=== PATIENT | female | born 1985 | race Caucasian/White ===

== ENCOUNTER → 2017-11-06 14:11 | Outpatient (CLI) | payer BC, SELFPAY ==
--- NOTE | 2017-11-06 14:15 | XR_ITS ---
XR knee RT 3V HISTORY: ITS.REASON: RT KNEE INJURY, PAIN ORDERING PHYSICIAN: Elmer Herzog PATIENT AGE: 32 years COMPARISON: None FINDINGS: No fracture or dislocation. No lytic or blastic change. Normal mineralization. No significant arthritic changes evident. No other significant findings IMPRESSION: Negative Knee
== END ==
PROVIDERS: PCP Internal Medicine; Visit Provider Internal Medicine
DX: M25.561 Pain in right knee (principal)
CPT/HCPCS: 73562

== ENCOUNTER → 2020-08-20 15:51 | Outpatient (CLI) | payer OTHER, SELFPAY ==
--- NOTE | 2020-08-20 15:55 | XR_ITS ---
PROCEDURE: XR CHEST 2V CLINICAL HISTORY: THORACIC CHEST PAIN (POSTERIOR) COMPARISON: CR CXR CHEST(2 VIEWS-NOT PORTABLE) from 05/06/2013 CR CXR CHEST(2 VIEWS-NOT PORTABLE) from 11/15/2013 CR CXR CHEST(2 VIEWS-NOT PORTABLE) from 07/04/2014 FINDINGS: The cardiomediastinal silhouette and pulmonary vascularity are within normal limits. The lungs are clear without infiltrates, suspicious nodules, or pleural effusions. No acute bony abnormalities. IMPRESSION: No acute findings. Dictated by: Seymour Tavarez MD 08/20/2020 16:40 Seymour Tavarez MD in [place] 08/20/2020 16:40
== END ==
PROVIDERS: PCP Internal Medicine; Visit Provider Internal Medicine
DX: M54.6 Pain in thoracic spine (principal)
CPT/HCPCS: 71046

== ENCOUNTER → 2020-08-25 09:13 | Outpatient (CLI) | payer OTHER, SELFPAY ==
[2020-08-26 12:29] LABS: Covid-19 Nasal PCR Sendout Lex Not Detected
== END ==
PROVIDERS: PCP Internal Medicine; Visit Provider Internal Medicine
DX: Z03.818 Encounter for observation for suspected exposure to other biological agents ruled out (principal)
CPT/HCPCS: U0004

== ENCOUNTER → 2021-03-18 14:33 | Outpatient (CLI) | payer OTHER, SELFPAY ==
--- NOTE | 2021-03-18 14:35 | XR_ITS ---
PROCEDURE: XR FOOT WT BEARING RT 3V CLINICAL INDICATION: right foot pain COMPARISON: CR FTL3 FOOT-LT-3 VIEWS from 11/19/2012 CR FTL3 FOOT-LT-3 VIEWS from 11/23/2012 FINDINGS: No fracture or dislocation. No lytic or blastic change. There is normal mineralization. The joint spaces are well-preserved. No significant degenerative/arthritic changes. No erosive changes evident. Other findings:None. IMPRESSION: No acute findings. Dictated by: Seymour Tavarez MD 03/18/2021 15:05 Seymour Tavarez MD in [place] 03/18/2021 15:05
== END ==
PROVIDERS: PCP Internal Medicine; Visit Provider Podiatrist
DX: M79.671 Pain in right foot (principal)
CPT/HCPCS: 73630

== ENCOUNTER → 2021-06-28 10:10 | Outpatient (CLI) | payer OTHER, SELFPAY ==
[2021-06-28 10:44] LABS: Coronavirus 19, PCR Not Detected (NotDetected); Influenza A, PCR Not Detected (NotDetected); Influenza B, PCR Not Detected (NotDetected)
[2021-06-28 11:27] LABS: Strep Scrn Group A (Rapid) Negative (Negative)
== END ==
PROVIDERS: PCP Internal Medicine; Visit Provider Internal Medicine
DX: Z20.822 Contact with and (suspected) exposure to COVID-19 (principal)
CPT/HCPCS: 87430; C9803; U0003; U0005

== ENCOUNTER → 2021-12-16 10:20 | Outpatient (CLI) | payer OTHER, SELFPAY ==
[2021-12-16 10:44] LABS: Coronavirus 19, PCR Not Detected (NotDetected); Influenza A, PCR Not Detected (NotDetected); Influenza B, PCR Not Detected (NotDetected)
[2021-12-16 11:05] LABS: Strep Scrn Group A (Rapid) Negative (Negative)
== END ==
PROVIDERS: PCP Internal Medicine; Visit Provider Internal Medicine
DX: Z20.822 Contact with and (suspected) exposure to COVID-19 (principal); J02.9 Acute pharyngitis, unspecified
CPT/HCPCS: 87275; 87276; 87430; C9803; U0003; U0005

== ENCOUNTER → 2022-01-27 09:05 | Outpatient (CLI) | payer OTHER, SELFPAY ==
--- NOTE | 2022-01-27 09:09 | XR_ITS ---
FINAL REPORT CLINICAL HISTORY: knee pain COMPARISON: November 06, 2017 FINDINGS: RIGHT KNEE: Four views of the right knee obtained. There is no acute fracture or dislocation. The joint spaces are intact.. There is no soft tissue abnormality. IMPRESSION: No acute fracture Reviewed, Interpreted and Dictated by Basilio Julien III, MD Transcribed by Rachael Mcneill Authenticated by Basilio Julien III, MD on 01/27/2022 10:15:52 AM [facility]
== END ==
PROVIDERS: PCP Internal Medicine; Visit Provider Orthopaedic Surgery
DX: M25.561 Pain in right knee (principal)
CPT/HCPCS: 73564

== ENCOUNTER 2022-01-27 10:07 | Outpatient (RCR) | payer OTHER, SELFPAY | END 2022-01-27 11:00 | disposition home or self-care (01) | LOC: PT 10:07 | PROVIDERS: Visit Provider Orthopaedic Surgery | DX: M25.561 Pain in right knee (principal) | CPT/HCPCS: 97760 ==

== ENCOUNTER → 2022-02-01 07:25 | Outpatient (CLI) | payer OTHER, SELFPAY ==
--- NOTE | 2022-02-01 07:25 | MR_ITS ---
FINAL REPORT CLINICAL HISTORY: knee injury while bowling 1 week ago, medial pain and swelling. FINDINGS: Multiplanar MR imaging of the right knee was performed without contrast. The medial and lateral menisci are intact without evidence of meniscal tear. The anterior and posterior cruciate ligaments are intact. The medial collateral ligament and lateral ligamentous complex are intact. The patellar and quadriceps tendons are intact. There is a bone bruise/marrow edema in the medial tibial metaphysis with probable small focal fracture, best seen on series 9, image 14. No focal abnormality is identified of the articular cartilage.A small joint effusion is seen. The musculature is intact. A small popliteal cyst is identified. IMPRESSION: Probable small focal fracture as above. Reviewed, Interpreted and Dictated by Basilio Julien III, MD Transcribed by Rachael Mcneill Authenticated by Basilio Julien III, MD on 02/01/2022 10:16:15 AM [facility]
== END ==
PROVIDERS: PCP Internal Medicine; Visit Provider Orthopaedic Surgery
DX: M25.561 Pain in right knee (principal)
CPT/HCPCS: 73721

== ENCOUNTER → 2022-02-02 15:18 | Outpatient (CLI) | payer OTHER, SELFPAY | LOC: UTC 15:19 → UTC.OUT 02-10 10:24 | PROVIDERS: PCP Internal Medicine; Visit Provider Orthopaedic Surgery | DX: M25.561 Pain in right knee (principal); S82.201D Unspecified fracture of shaft of right tibia, subsequent encounter for closed fracture with routine healing ==

== ENCOUNTER → 2022-02-10 10:39 | Outpatient (CLI) | payer OTHER, SELFPAY ==
--- NOTE | 2022-02-10 10:42 | XR_ITS ---
FINAL REPORT CLINICAL HISTORY: knee pain FINDINGS: LEFT KNEE: 4 views of the left knee obtained. There is no acute fracture or dislocation. The joint spaces are intact. There is mild lateral patellar subluxation without dislocation.. There is no soft tissue abnormality. IMPRESSION: Mild lateral patellar subluxation which can be seen with patellar tracking abnormalities. Reviewed, Interpreted and Dictated by Marifer Davis MD Transcribed by Hardy Bello Authenticated by Marifer Davis MD on 02/10/2022 11:32:55 AM [facility]
--- NOTE | 2022-02-10 10:42 | XR_ITS ---
FINAL REPORT CLINICAL HISTORY: knee pain COMPARISON: January 27, 2022 FINDINGS: RIGHT KNEE: 4 views of the right knee obtained. There is no acute fracture or dislocation. The joint spaces are intact. There is stable, mild lateral patellar subluxation without dislocation. There is no soft tissue abnormality. IMPRESSION: Stable, mild lateral patellar subluxation which can be seen with patellar tracking abnormalities. Reviewed, Interpreted and Dictated by Marifer Davis MD Transcribed by Hardy Bello Authenticated by Marifer Davis MD on 02/10/2022 11:32:47 AM [facility]
== END ==
PROVIDERS: PCP Internal Medicine; Visit Provider Orthopaedic Surgery
DX: M25.561 Pain in right knee (principal); M25.562 Pain in left knee
CPT/HCPCS: 73564

== ENCOUNTER → 2022-05-19 11:59 | Outpatient (CLI) | payer OTHER, SELFPAY ==
--- NOTE | 2022-05-19 12:07 | XR_ITS ---
FINAL REPORT CLINICAL HISTORY: right knee injury/pain FINDINGS: Right knee Four views were obtained. There is no acute fracture or dislocation. No joint effusion is identified. The joint spaces appear normal. No soft tissue abnormality is identified. IMPRESSION: No acute process. Reviewed, Interpreted and Dictated by Basilio Julien III, MD Transcribed by Arlen Mayorga Authenticated and [facility]
== END ==
PROVIDERS: PCP Internal Medicine; Visit Provider Orthopaedic Surgery
DX: M25.561 Pain in right knee (principal)
CPT/HCPCS: 73564

== ENCOUNTER → 2022-07-31 12:19 | Outpatient (CLI) | payer OTHER, SELFPAY ==
--- NOTE | 2022-07-31 12:23 | XR_ITS ---
FINAL REPORT TECHNIQUE: Chest PA & Lateral CLINICAL HISTORY: dyspnea since last week COMPARISON: 08/20/2020 FINDINGS: 2 views of the chest were performed. The heart size is normal. The mediastinum is within normal limits. There is no acute cardiopulmonary process. There are no pleural effusions. There is no pneumothorax. The bony thorax appears intact. IMPRESSION: No acute cardiopulmonary process. Reviewed, Interpreted and Dictated by Keven Shukla MD Transcribed by Brittni Gonzalez Authenticated and [facility]
[2022-07-31 13:41] LABS: Basophils # 0.1 K/mm3 (0-0.2); Basophils % 0.4 % (0.1-2.0); Eosinophils # 0.1 K/mm3 (0.0-0.4); Eosinophils % 0.5 % (0.1-12.0); Hematocrit 43.5 % (37.0-47.0); Hemoglobin 13.9 g/dL (12.2-16.2); Lymphocytes # 4.3 K/mm3 (0.7-4.5); Lymphocytes % 24.8 % (10-50); Mean Corpuscular HGB Conc 31.8 g/dL (31.8-35.4); Mean Corpuscular Hemoglobin 30.1 pg (27.0-31.2); Mean Corpuscular Volume 94.4 fl (81-99); Mean Platelet Volume 7.8 fl (7.4-10.4); Monocytes # 0.9 K/mm3 (0.1-1.0); Monocytes % 5.1 % (1.7-9.3); Neutrophils % 69.1 % (37.0-80.0); Platelet Count 388 K/mm3 (142-424); Red Blood Count 4.61 M/mm3 (4.20-5.40); Red Cell Distribution Width 12.9 % (11.5-17.5); White Blood Count 17.3 K/mm3 (4.8-10.8)
[2022-07-31 13:43] LABS: MANUAL DIFFERENTIAL MANUAL DIFFERENTIAL (MANUAL DIFF)
[2022-07-31 13:53] LABS: D-Dimer 0.52 ug/mL (0.0-0.5)
[2022-07-31 14:17] LABS: Blood Urea Nitrogen 12 mg/dl (7-17); Calcium 10.9 mg/dl (8.4-10.2); Carbon Dioxide 26 mmol/L (22.0-30.0); Chloride 101 mmol/L (98-107); Estimated Glomerular Filt Rate 62 ml/min (>60); GFR (African American) 75 ML/MIN (>60); Glucose 82 mg/dl (74-100); Sodium 142 mmol/L (136-145)
[2022-07-31 14:36] LABS: Lymphocytes % 27 % (10-50); Monocytes % 3 % (2-9); Neutrophils % 70 % (42-76); Platelet Estimate Normal; RBC Morphology Normal; Total Cells Counted 100
== END ==
PROVIDERS: PCP Internal Medicine; Visit Provider Internal Medicine Pulmonary Disease
DX: R06.02 Shortness of breath (principal); R06.09 Other forms of dyspnea; J45.909 Unspecified asthma, uncomplicated
CPT/HCPCS: 36415; 71046; 80048; 85007; 85025; 85378

== ENCOUNTER → 2022-08-23 15:15 | Outpatient (CLI) | payer OTHER, SELFPAY ==
--- NOTE | 2022-08-23 15:17 | XR_ITS ---
FINAL REPORT CLINICAL HISTORY: cough x 1 week FINDINGS: Two views of the chest were obtained. The heart size and pulmonary vascularity are within normal limits. The mediastinum is normal. No acute pulmonary abnormality is identified. There is no pneumothorax. The bony thorax is intact. IMPRESSION: No active cardiopulmonary disease. Reviewed, Interpreted and Dictated by Basilio Julien III, MD Transcribed by Brittni Gonzalez Authenticated and [facility]
== END ==
PROVIDERS: PCP Internal Medicine; Visit Provider Internal Medicine Pulmonary Disease
DX: R05.9 Cough, unspecified (principal)
CPT/HCPCS: 71046

== ENCOUNTER → 2022-08-30 08:33 | Outpatient (CLI) | payer OTHER, SELFPAY ==
--- NOTE | 2022-08-30 08:47 | CT_ITS ---
FINAL REPORT TECHNIQUE: Thin section axial CT images were obtained from the lung apices to the upper abdomen. IV contrast was administered. MIP 3-D reformats were obtained. This study was performed with techniques to keep radiation doses as low as reasonably achievable (ALARA). Individualized dose reduction techniques using automated exposure control or adjustment of mA and/or kV according to the patient's size were employed. CLINICAL HISTORY: SOB FINDINGS: The heart size is normal. There is no adenopathy. Motion artifact in the lung bases obscures the smaller branches. No pulmonary embolism is identified. There is no aortic dissection. There is no pericardial effusion. There is mild dependent atelectasis. There is no suspicious infiltrate or nodule. No pleural effusion. Limited images of the upper abdomen demonstrate postoperative changes from cholecystectomy. There are several nonobstructing right renal stones measuring up to 4 mm. IMPRESSION: No pulmonary embolism or aortic dissection. Reviewed, Interpreted and Dictated by Basilio Julien III, MD Transcribed by Hardy Bello Authenticated and [facility]
[2022-08-30 09:21] LABS: Blood Urea Nitrogen 9 mg/dl (7-17); Estimated Glomerular Filt Rate 81 ml/min (>60); GFR (African American) 98 ML/MIN (>60)
[2022-08-30 09:45] LABS: Intact Parathyroid Hormone 77.2 pg/mL (7.5-53.5)
[2022-08-30 10:39] LABS: 25-OH Vitamin D, Total 23.2 ng/mL (30-100)
[2022-08-31 13:09] LABS: Angiotensin Converting Enzyme 41 U/L (14-82)
== END ==
PROVIDERS: PCP Internal Medicine; Visit Provider Internal Medicine Pulmonary Disease
DX: R06.09 Other forms of dyspnea (principal); R79.89 Other specified abnormal findings of blood chemistry; E83.52 Hypercalcemia; R59.0 Localized enlarged lymph nodes; J45.909 Unspecified asthma, uncomplicated
CPT/HCPCS: 36415; 71275; 82164; 82306; 82565; 83970; 84520; Q9967

== ENCOUNTER 2022-10-25 13:25 | Emergency (ER) | payer OTHER, SELFPAY ==
[2022-10-25] VITALS (11 sets, daily range): BP systolic 101–120; BP diastolic 61–77; PULSE 76–100; RESP 16–20; TEMP 37; O2SAT 97–99; BMI 27.4
[2022-10-25 13:59] LABS: Alanine Aminotransferase 25 U/L (12-78); Albumin Level 3.9 g/dl (3.5-5.0); Albumin/Globulin Ratio 1.5 (1.1-1.8); Alkaline Phosphatase 92 U/L (38-126); Anion Gap 9.4 mEq/L (5-15); Aspartate Amino Transferase 31 U/L (14-36); Bilirubin,Total 0.2 mg/dl (0.2-1.3); Blood Urea Nitrogen 11 mg/dl (7-17); Carbon Dioxide 26 mmol/L (22.0-30.0); Chloride 110 mmol/L (98-107); Creatinine Clearance Estimated 117 mL/min (50-200); Estimated Glomerular Filt Rate 81 ml/min (>60); GFR (African American) 98 ML/MIN (>60); Globulin 2.6 g/dL (1.3-3.2); Glucose 103 mg/dl (74-100); Magnesium 1.5 mg/dl (1.6-2.3); Potassium 3.4 mmoL/L (3.5-5.1); Sodium 142 mmol/L (136-145); Total Protein,Serum 6.5 g/dl (6.3-8.2)
--- NOTE | 2022-10-25 13:59 | HMH.EDGENADL ---
Discharge Plan Disposition Patient Disposition: Home, Self-Care Prescriptions Prescriptions: New calcitriol 0.25 mcg capsule 0.25 mcg PO DAILY Qty: 10 0RF No Action Emgality Pen 120 mg/mL pen injector SQ Label Comments: ADMINISTER 1 ML UNDER THE SKIN 1 TIME MONTHLY diclofenac sodium [Voltaren Arthritis Pain] 1 % gel 2 g TP QID Qty: 100 2RF Rx Instructions: apply to single elbow, wrist or hand; for hand includes palm/fingers/back of hand bupropion HCl 100 mg tablet sustained-release 12 hr 100 mg PO Label Comments: TAKE ONE TABLET BY MOUTH TWICE DAILY (IN THE MORNING AND BEFORE bedtime) topiramate [Topamax] 25 mg tablet 10 mg PO BID prednisone 20 mg tablet 40 mg PO DAILY 5 Days Qty: 10 0RF ipratropium-albuterol 0.5 mg-3 mg(2.5 mg base)/3 mL solution for nebulization 3 ml inhalation Q6H PRN (Reason: shortness of breath or wheezing) Qty: 90 3RF albuterol sulfate 90 mcg/actuation HFA aerosol inhaler 2 inh inhalation Q6H PRN (Reason: shortness of breath or wheezing) 90 Days Qty: 8.5 1RF Trelegy Ellipta 100-62.5-25 mcg blister with device 1 inh inhalation DAILY 90 Days Qty: 90 3RF azelastine 137 mcg (0.1 %) aerosol,spray 2 spray intranasal BID 90 Days Qty: 30 3RF Rx Instructions: administer into each nostril Referrals Follow up/Referrals: Provider,Referral, MD [Referring] - See instructions Activity Restrictions/Add. Instructions Additional Instructions/Restrictions: Call your surgeon's office tomorrow for follow-up. Return for worsening symptoms within the next 8 hours Clinical Impressions Clinical Impression: Hypocalcemia Discharge ED Provider: Cyrus Montalvo General Adult HPI General Chief complaint: Weakness Stated complaint: weakness Time Seen by Provider: 10/25/22 13:30 Mode of Arrival: EMS Source of Information: Patient Limitations: No Limitations Description of Symptoms (Recalled from ER Triage Doc. by RN): on 10/23/22 pt had partial parathyroidectomy. pt was told after procedure that she had low vitamin D levels. today she began experiencing twitching and tingiling in bilateral arms, eyes and legs. pt was told to take tums by the surgeon to help with these symptoms, pt states that she has been doing that with no relief. History of Present Illness HPI narrative: 37-year-old female on 10/23/2022 had partial parathyroidectomy. This was done at she was told after her procedure she would have low vitamin D levels. She now has twitching in her bilateral hands and also in her eye. She was stable to taking Tums originally after the surgery however the symptoms have not been resolved with Tums. No fever chest pain abdominal pain nausea vomiting or diarrhea Related Data Home Medications Medication Instructions Recorded Confirmed bupropion HCl 100 mg tablet,12 hr 100 mg PO 01/27/22 08/23/22 sustained-release galcanezumab-gnlm 120 mg/mL ml SQ 03/31/22 08/23/22 subcutaneous pen injector (Emgality Pen) topiramate 25 mg tablet (Topamax) 10 mg PO BID 07/31/22 08/23/22 Previous Rx's Medication Instructions Recorded diclofenac sodium 1 % topical gel 2 g topical QID #100 grams 03/31/22 (Voltaren Arthritis Pain) ipratropium 0.5 mg-albuterol 3 mg 3 ml inhalation Q6H PRN shortness 07/31/22 (2.5 mg base)/3 mL nebulization of breath or wheezing #90 mL soln prednisone 20 mg tablet 40 mg PO DAILY 5 days #10 tabs 07/31/22 albuterol sulfate 90 mcg/actuation 2 inh inhalation Q6H PRN shortness 08/23/22 aerosol inhaler of breath or wheezing 90 days #8.5 grams azelastine 137 mcg (0.1 %) nasal 2 spray intranasal BID 90 days #30 08/23/22 spray aerosol mL fluticasone fur. 100 mcg-umeclid 1 inh inhalation DAILY 90 days #90 08/23/22 62.5 mcg-vilant 25 mcg ea inhalat.powder (Trelegy Ellipta) calcitriol 0.25 mcg capsule 0.25 mcg PO DAILY #10 caps 10/25/22 Allergies Allergy/AdvReac Type Severity Reaction Status Date / Time m
[2022-10-25 14:07] LABS: Basophils # 0.1 K/mm3 (0-0.2); Basophils % 0.9 % (0.1-2.0); Eosinophils # 0.1 K/mm3 (0.0-0.4); Eosinophils % 1.6 % (0.1-12.0); Hematocrit 37.8 % (37.0-47.0); Hemoglobin 12.4 g/dL (12.2-16.2); Lymphocytes # 2.8 K/mm3 (0.7-4.5); Lymphocytes % 35.9 % (10-50); Mean Corpuscular HGB Conc 32.7 g/dL (31.8-35.4); Mean Corpuscular Hemoglobin 30.6 pg (27.0-31.2); Mean Corpuscular Volume 93.6 fl (81-99); Mean Platelet Volume 7.4 fl (7.4-10.4); Monocytes # 0.4 K/mm3 (0.1-1.0); Monocytes % 4.7 % (1.7-9.3); Neutrophils # 4.4 K/mm3 (1.8-7.8); Neutrophils % 56.8 % (37.0-80.0); Platelet Count 318 K/mm3 (142-424); Red Blood Count 4.04 M/mm3 (4.20-5.40); Red Cell Distribution Width 13.1 % (11.5-17.5); White Blood Count 7.7 K/mm3 (4.8-10.8)
--- NOTE | 2022-10-25 14:08 | ECG_ITS ---
APPROVED REPORT Exam: Resting ECG HR:79 bpm ECG Measurements Heart Rate 79 AXES MD 152 P 49 QRSd 86 QRS -9 QT 358 T 15 QTc 393 Conclusion SINUS RHYTHM LOW QRS VOLTAGE IN PRECORDIAL LEADS [QRS DEFLECTION < 1.0 mV IN CHEST LEADS] BORDERLINE ECG UNCONFIRMED REPORT Electronically signed by : Miguel Jefferson MD 10/25/2022 21:22:45
[2022-10-25 14:10] LABS: HCG Qualitative, Serum Negative (Negative)
[2022-10-25 14:34] LABS: Thyroid Stimulating Hormone 0.17 uIU/mL (0.465-4.68)
--- NOTE | 2022-10-25 14:46 | PC.NURSE ---
placed call to [facility] for consult with Dr Chen
--- NOTE | 2022-10-25 14:51 | PC.NURSE ---
Dr Montalvo speaking with Dr Brooks
--- NOTE | 2022-10-25 16:47 | PC.NURSE ---
assisted pt to restroom at this time
--- NOTE | 2022-10-25 16:54 | PC.NURSE ---
pt back in bed, states no needs at this time
[2022-10-27 16:03] LABS: Calcium, Ionized 5.1 mg/dL (4.5-5.6)
== END 2022-10-25 18:42 | disposition home or self-care (01) ==
PROVIDERS: Emergency Provider Emergency Medicine; PCP Internal Medicine
DX: E83.51 Hypocalcemia (principal); J45.909 Unspecified asthma, uncomplicated; R53.1 Weakness; Z82.5 Family history of asthma and other chronic lower respiratory diseases
CPT/HCPCS: 36415; 80053; 82330; 83735; 84443; 84703; 85025; 93005; 96361; 96365; 96366; 96375; 99285; J2405; J3475

== ENCOUNTER → 2022-10-31 09:48 | Outpatient (CLI) | payer OTHER, SELFPAY ==
[2022-10-31 11:32] LABS: Chloride 105 mmol/L (98-107); Sodium 141 mmol/L (136-145)
[2022-10-31 11:35] LABS: Alanine Aminotransferase 23 U/L (12-78); Albumin Level 4.2 g/dl (3.5-5.0); Albumin/Globulin Ratio 1.4 (1.1-1.8); Alkaline Phosphatase 105 U/L (38-126); Aspartate Amino Transferase 25 U/L (14-36); Bilirubin,Total 0.4 mg/dl (0.2-1.3); Blood Urea Nitrogen 14 mg/dl (7-17); Calcium 8.8 mg/dl (8.4-10.2); Carbon Dioxide 26 mmol/L (22.0-30.0); Estimated Glomerular Filt Rate 70 ml/min (>60); GFR (African American) 85 ML/MIN (>60); Globulin 2.9 g/dL (1.3-3.2); Glucose 99 mg/dl (74-100); Magnesium 1.9 mg/dl (1.6-2.3); Total Protein,Serum 7.1 g/dl (6.3-8.2)
[2022-10-31 17:52] LABS: Intact Parathyroid Hormone 5.8 pg/mL (7.5-53.5)
[2022-11-01 19:23] LABS: Calcium, Ionized 5.2 mg/dL (4.5-5.6)
== END ==
PROVIDERS: Nurse Practitioner; PCP Internal Medicine; Visit Provider Surgery
DX: E83.51 Hypocalcemia (principal)
CPT/HCPCS: 36415; 80053; 82330; 83735; 83970

== ENCOUNTER → 2022-11-21 13:08 | Outpatient (CLI) | payer OTHER, SELFPAY ==
[2022-11-21 14:03] LABS: Alanine Aminotransferase 15 U/L (12-78); Albumin Level 4.3 g/dl (3.5-5.0); Albumin/Globulin Ratio 1.7 (1.1-1.8); Alkaline Phosphatase 95 U/L (38-126); Anion Gap 12.2 mEq/L (5-15); Aspartate Amino Transferase 22 U/L (14-36); Bilirubin,Total 0.3 mg/dl (0.2-1.3); Blood Urea Nitrogen 5 mg/dl (7-17); Calcium 8.9 mg/dl (8.4-10.2); Carbon Dioxide 26 mmol/L (22.0-30.0); Chloride 105 mmol/L (98-107); Estimated Glomerular Filt Rate 70 ml/min (>60); GFR (African American) 85 ML/MIN (>60); Globulin 2.6 g/dL (1.3-3.2); Glucose 79 mg/dl (74-100); Potassium 4.2 mmoL/L (3.5-5.1); Sodium 139 mmol/L (136-145); Total Protein,Serum 6.9 g/dl (6.3-8.2)
[2022-11-21 14:15] LABS: Intact Parathyroid Hormone 24.3 pg/mL (7.5-53.5)
[2022-11-22 15:33] LABS: Calcium, Ionized 4.9 mg/dL (4.5-5.6)
== END ==
PROVIDERS: PCP Internal Medicine; Visit Provider Nurse Practitioner
DX: E89.2 Postprocedural hypoparathyroidism (principal)
CPT/HCPCS: 36415; 80053; 82330; 83970

== ENCOUNTER → 2023-04-24 12:09 | Outpatient (CLI) | payer OTHER, SELFPAY ==
[2023-04-24 13:20] LABS: Calcium 9.3 mg/dl (8.4-10.2); Magnesium 1.8 mg/dl (1.6-2.3)
[2023-04-24 13:33] LABS: Intact Parathyroid Hormone 38.4 pg/mL (7.5-53.5)
[2023-04-25 11:00] LABS: Calcium, Ionized 4.9 mg/dL (4.5-5.6)
== END ==
PROVIDERS: PCP Internal Medicine; Visit Provider Nurse Practitioner
DX: E89.2 Postprocedural hypoparathyroidism (principal); E21.0 Primary hyperparathyroidism
CPT/HCPCS: 36415; 82310; 82330; 83735; 83970

== ENCOUNTER → 2023-06-19 15:12 | Outpatient (CLI) | payer OTHER, SELFPAY ==
--- NOTE | 2023-06-19 15:13 | MR_ITS ---
FINAL REPORT CLINICAL HISTORY: Rt Knee Pain FINDINGS: Multiplanar MR imaging of the right knee was performed without contrast. The medial and lateral menisci are intact without evidence of meniscal tear. The anterior and posterior cruciate ligaments are intact. The medial collateral ligament and lateral ligamentous complex are intact. The patellar and quadriceps tendons are intact. There is no evidence of fracture. No focal abnormality is identified of the articular cartilage. A small joint effusion is seen. The musculature is intact. No soft tissue mass or cyst is identified. IMPRESSION: No evidence of meniscal or ligamentous injury. No acute abnormality identified. Authenticated and [facility]
== END ==
PROVIDERS: PCP Internal Medicine; Visit Provider Orthopaedic Surgery
DX: M25.561 Pain in right knee (principal)
CPT/HCPCS: 73721

== ENCOUNTER 2024-08-07 14:08 | Outpatient (CLI) | payer OTHER, SELFPAY ==
[2024-08-07 13:52] LABS: Influenza A, PCR Not Detected (NotDetected); Influenza B, PCR Not Detected (NotDetected)
[2024-08-07 14:52] LABS: Coronavirus 19, PCR Detected (NotDetected)
== END 2024-08-07 23:59 | disposition home or self-care (01) ==
LOC: LAB.DROPOF 14:08
PROVIDERS: PCP Internal Medicine; Visit Provider Internal Medicine
DX: J06.9 Acute upper respiratory infection, unspecified (principal); J45.901 Unspecified asthma with (acute) exacerbation; Z72.0 Tobacco use
CPT/HCPCS: 87636